=== PATIENT | female | born 1960 | race Caucasian/White ===

== ENCOUNTER 2020-11-22 17:28 | Emergency (ER) | payer MEDICARE, OTHER ==
[~2020-11-22] VITALS: Ht 157.5 cm; Wt 80.7 kg
--- OUTSIDE RECORDS SUMMARY | 2020-11-22 19:42 | XMS ---
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 PHONE: [phone] SOFIA REBOLLEDO Nurse Practitioner: Family Current PHONE: [phone] Care Guidelines exist for the following facilities: [facility] ( 10/26/2019 ) Care History Behavioral 10/31/2017 [facility] Dual diagnosis member needs an evaluation for her substance use and her mental health to get treatment. 10/01/2017 [facility] Member appears to be dual diagnosis and could benefit from a mental health and substance use evaluation for possible treatment. 02/19/2017 [facility] In need of a mental health referral for self harm and possible depression. It doesn't appear she has any mental health provider currently. Substance Use/Overdose 09/18/2017 [facility] This member needs a drug and alcohol evaluation for alcohol abuse. 08/28/2017 [facility] Member could benefit from a referral for a substance evaluation once stabilized. E.D. VISIT COUNT (12 MO.) 1 [facility] TOTAL 1 NOTE: Visits indicate total known visits. ED/UCC VISIT TRACKING (12 MO.) 11/22/2020 17:28 [facility] [place] TYPE: Emergency COMPLAINT: - SUICIDAL IDEATION INPATIENT VISIT TRACKING (12 MO.) No inpatient visits to display in this time frame [id number]
[2020-11-22] MEDS ORDERED: TRAZODONE HCL150 MG PO (20:04)
[2020-11-22] MEDS ORDERED: HYDROCODON-ACE1 EA11 PO (20:04)
[2020-11-22] MEDS ORDERED: LISINOPRIL10 MG PO (20:05)
[2020-11-22] MEDS ORDERED: LO-DOSE ASPIRIN81 MG PO (20:05)
[2020-11-22] MEDS ORDERED: LOVASTATIN40 MG PO (20:05)
[2020-11-22] MEDS ORDERED: METOPROLOL SUCC25 MG PO (20:06)
--- NOTE | 2020-11-23 08:11 | EKG ---
[facility] [address] [place], [place] [address] Signed Normal sinus rhythm Normal ECG No previous ECGs available Confirmed by RUBIO SHUKLA MD ([id number]) on 11/23/2020 8:11:25 AM Electronically Signed By: RUBIO SHUKLA MD 11/23/20810 PATIENT NAME: MIMI AZAR Electrocardiogram DATE OF : 64 PHYSICIAN: RUBIO SHUKLA MD REPORT #: [id number] REPORT IS CONFIDENTIAL AND NOT TO BE RELEASED WITHOUT AUTHORIZATION
== END 2020-11-23 11:34 | disposition home or self-care (01) ==
LOC: ED 17:28
DX: F32.9 Major depressive disorder, single episode, unspecified (principal); F10.129 Alcohol abuse with intoxication, unspecified; Y90.6 Blood alcohol level of 120-199 mg/100 ml; Z20.822 Contact with and (suspected) exposure to COVID-19; Z79.82 Long term (current) use of aspirin; Z79.899 Other long term (current) drug therapy
CPT/HCPCS: 80053; 80176; 81001; 84443; 84703; 85025; 93005; 93010; 99285-25; A9270; C9803; U0003

== ENCOUNTER 2021-02-08 08:54 | Emergency (ER) | payer MEDICARE, OTHER ==
[~2021-02-08] VITALS: Ht 157.5 cm; Wt 80.7 kg
[~2021-02-08 08:54] MED LIST: HYDROCODON-ACE1 EA11 PO; LISINOPRIL10 MG PO; LO-DOSE ASPIRIN81 MG PO; LOVASTATIN40 MG PO; METOPROLOL SUCC25 MG PO; TRAZODONE HCL150 MG PO
--- OUTSIDE RECORDS SUMMARY | 2021-02-08 08:58 | XMS ---
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 REC[facility] Counselor: Addiction (Substance Use Disorder) [employer] [facility] [employer] PHONE: [phone] SOFIA REBOLLEDO Nurse Practitioner: Family Current PHONE: [phone] Care Guidelines exist for the following facilities: [facility] ( 10/26/2019 ) Care History Substance Use/Overdose 09/18/2017 [facility] This member needs a drug and alcohol evaluation for alcohol abuse. 08/28/2017 [facility] Member could benefit from a referral for a substance evaluation once stabilized. Behavioral 10/31/2017 [facility] Dual diagnosis member needs an evaluation for her substance use and her mental health to get treatment. [facility] appears to be dual diagnosis and could benefit from a mental health and substance use evaluation for possible treatment. 02/19/2017 [facility] In need of a mental health referral for self harm and possible depression. It doesn't appear she has any mental health provider currently. E.DJames VISIT COUNT (12 MO.) 2 MARIEL[facility] Ocho[facility] TOTAL 2 NOTE: Visits indicate total known visits. ED/UCC VISIT TRACKING (12 MO.) 02/08/2021 08:55 [facility] [place] TYPE: Emergency COMPLAINT: - MEDICATION OVERDOSE 11/22/2020 17:[address] [facility] [place] TYPE: Emergency COMPLAINT: - SUICIDAL IDEATION DIAGNOSES: - Alcohol abuse with intoxication, unspecified - [facility] (current) use of aspirin - Major depressive disorder, single episode, unspecified - Blood alcohol level of 120-199 mg/100 ml - Other half-way (current) drug therapy INPATIENT VISIT TRACKING (12 MO.) No inpatient visits to display in this time frame [email or web address]
--- NOTE | 2021-02-08 17:57 | EKG ---
[facility] [address] [facility] [place] [address] Signed Normal sinus rhythm Normal ECG When compared with ECG of 22-NOV-2020 19:31, No significant change was found Confirmed by RUBIO SHUKLA MD ([id number]) on 02/08/2021 5:57:29 PM Electronically Signed By: RUBIO SHUKLA MD 02/08/21 1757 PATIENT NAME: MIMI AZAR Electrocardiogram DATE OF : 64 PHYSICIAN: RUBIO SHUKLA MD REPORT #: [id number] REPORT IS CONFIDENTIAL AND NOT TO BE RELEASED WITHOUT AUTHORIZATION
== END 2021-02-08 12:01 | disposition home or self-care (01) ==
LOC: ED 08:54
DX: T46.4X2A Poisoning by angiotensin-converting-enzyme inhibitors, intentional self-harm, initial encounter (principal); I10 Essential (primary) hypertension; F17.200 Nicotine dependence, unspecified, uncomplicated; Z79.899 Other long term (current) drug therapy; Z79.891 Long term (current) use of opiate analgesic; Z79.82 Long term (current) use of aspirin
CPT/HCPCS: 80053; 81001; 84443; 85025; 93005; 93010; 99285-25; A9270; G0480

== ENCOUNTER 2021-05-06 10:50 | Emergency (ER) | payer MEDICARE, OTHER ==
[~2021-05-06] VITALS: Ht 157.5 cm; Wt 80.7 kg
[2021-05-06] MEDS ORDERED: CYCLOBENZAPRINE10 MG PO (11:01)
[2021-05-06] MEDS ORDERED: CITALOPRAM HBR40 MG PO (11:01)
[2021-05-06] MEDS ORDERED: ONDANSETRON ODT8 MG PO (12:47)
--- NOTE | 2021-05-06 18:56 | EKG ---
[facility] [address] [place], [place] [address] Signed Normal sinus rhythm Minimal voltage criteria for LVH, may be normal variant ( R in aVL ) Borderline ECG When compared with ECG of 08-FEB-2021 09:17, No significant change was found Confirmed by MARLYN KAT DO ([id number]) on 05/06/2021 6:56:23 PM Electronically Signed By: MARLYN KAT DO 05/06/21 1856 PATIENT NAME: MIMI AZAR Electrocardiogram DATE OF : 64 PHYSICIAN: MARLYN KAT DO REPORT #: [id number] REPORT IS CONFIDENTIAL AND NOT TO BE RELEASED WITHOUT AUTHORIZATION
== END 2021-05-06 13:04 | disposition home or self-care (01) ==
LOC: ED 10:50
DX: B34.9 Viral infection, unspecified (principal); K29.00 Acute gastritis without bleeding; I10 Essential (primary) hypertension; F17.200 Nicotine dependence, unspecified, uncomplicated; Z79.899 Other long term (current) drug therapy; Z79.891 Long term (current) use of opiate analgesic; Z79.82 Long term (current) use of aspirin; Z20.822 Contact with and (suspected) exposure to COVID-19
CPT/HCPCS: 71045; 80053; 83735; 84484; 85025; 93005; 93010; 96374; 99285-25; A9270; C9803; J2405; J7030; U0003